=== PATIENT | male | born 1970 | race Caucasian/White ===

== ENCOUNTER 2018-11-12 08:38 | Emergency (ER) | payer OTHER ==
[~2018-11-12] VITALS: Ht 182.9 cm; Wt 88.9 kg
[2018-11-12] MEDS ORDERED: GABA300 PO (08:46)
[2018-11-12] MEDS ORDERED: CLON.1 PO (08:54)
[2018-11-12] MEDS ORDERED: B-1100 MG PO (08:54)
[2018-11-12] MEDS ORDERED: THERA1 EACH PO (08:55)
[2018-11-12] MEDS ORDERED: FOLI400 PO (08:55)
[2018-11-12] MEDS ORDERED: MELATONIN5 M1 PO (08:55)
[2018-11-12] MEDS ORDERED: Cymbalta20 MG PO (08:56)
[2018-11-12] MEDS ORDERED: Ativan1 MG PO (08:56)
[2018-11-12] MEDS ORDERED: METO25ER PO (08:57)
[2018-11-12] MEDS ORDERED: Hydroxyzine HCl50 MG PO (08:57)
[2018-11-12] MEDS ORDERED: PROM25 PO (08:58)
[2018-11-12] MEDS ORDERED: TRAZ50 PO (08:58)
== END 2018-11-12 10:15 | disposition home or self-care (01) ==
LOC: ER 08:38
DX: R44.0 Auditory hallucinations (principal); R44.1 Visual hallucinations; F10.239 Alcohol dependence with withdrawal, unspecified; Z79.899 Other long term (current) drug therapy
CPT/HCPCS: 99284

== ENCOUNTER 2018-11-12 14:29 | Inpatient (IN) | payer OTHER ==
[~2018-11-12] VITALS: Ht 182.9 cm; Wt 88.0 kg
[~2018-11-12 14:29] MED LIST: Ativan1 MG PO; B-1100 MG PO; CLON.1 PO; Cymbalta20 MG PO; FOLI400 PO; GABA300 PO; Hydroxyzine HCl50 MG PO; MELATONIN5 M1 PO; METO25ER PO; PROM25 PO; THERA1 EACH PO; TRAZ50 PO
[2018-11-12 15:01] LABS: BASOPHILS ABSOLUTE AUTO 0.01 K/mm3 (0.00-0.23); BASOPHILS PERCENT AUTO 1 % (0-2); EOSINOPHILS ABSOLUTE AUTO 0.03 K/mm3 (0.00-0.68); EOSINOPHILS PERCENT AUTO 2 % (0-6); Hematocrit 37.6 % (37.0-53.0); Hemoglobin 13.1 g/dL (13.5-17.5); IMMATURE GRAN ABSOLUTE AUTO 0.01 K/mm3 (0.00-0.10); IMMATURE GRAN PERCENT AUTO 1 % (0-1); LYMPHOCYTES ABSOLUTE AUTO 0.33 K/mm3 (0.84-5.20); LYMPHOCYTES PERCENT AUTO 19 % (21-46); MONOCYTES ABSOLUTE AUTO 0.22 K/mm3 (0.16-1.47); MONOCYTES PERCENT AUTO 13 % (4-13); Mean Corpuscular HGB 32.6 pg (26.0-34.0); Mean Corpuscular HGB Conc 34.8 g/dL (31.5-36.5); Mean Corpuscular Volume 94 fL (80-100); Mean Platelet Volume 9.9 fL (9.1-12.4); NEUTROPHILS PERCENT AUTO 65 % (41-73); RDW Coefficient Variation 12.5 % (11.7-14.2); RDW Standard Deviation 43.5 fL (35.1-46.3); Red Blood Cell Count 4.02 M/mm3 (4.30-5.90)
[2018-11-12 15:19] LABS: Platelet Count 39 K/mm3 (150-400)
[2018-11-12 15:25] LABS: Alanine Aminotransfer (ALT/SGP 185 U/L (12-78); Albumin, Blood 4.1 g/dL (3.4-5.0); Albumin/Globulin Ratio 1.6 (0.8-1.8); Alk Phos 109 U/L (50-136); Anion Gap 5 mmol/L (6-16); Aspartate Aminotrans (AST/SGOT 241 U/L (12-37); Bilirubin, Total 2.1 mg/dL (0.1-1.0); Blood Urea Nitrogen 12 mg/dL (8-24); Bun/Creatinine Ratio 15.6 (12.0-20.0); CO2, Blood 29 mmol/L (21-32); Calcium, Blood 9.8 mg/dL (8.5-10.1); Chloride, Blood 104 mmol/L (98-108); Creatinine, Blood 0.77 mg/dL (0.60-1.20); Globulin, Blood 2.6 g/dL (2.2-4.0); Glomerular Filtration Rate >60 (60-); Glucose, Blood 152 mg/dL (70-99); Magnesium, Blood 1.5 mg/dL (1.6-2.4); Potassium, Blood 3.7 mmol/L (3.5-5.5); Sodium, Blood 138 mmol/L (136-145); Total Protein, Blood 6.7 g/dL (6.4-8.2)
[2018-11-12 15:33] LABS: Ethanol (Alcohol), Blood, Med 5 mg/dL
[2018-11-12 17:20] LABS: International Normalized Ratio 1.16; Prothrombin Time Results 12.1 Sec (9.7-11.5)
[2018-11-12 17:41] LABS: Thyroid Stimulating Hormone 2.26 uIU/mL (0.360-4.800)
--- NOTE | 2018-11-12 22:32 | NUR ---
PT HAVING INCREASED HALLUCINATIONS. LIBRIUM ADDED TO EMAR BY DR. GORDON.
--- NOTE | 2018-11-13 04:37 | NUR ---
SHIFT SUMMARY PT PROGRESSIVELY BECAME MORE CONFUSED AND IMPULSIVE SHIFT WENT ON. PT IS UNSTEADY ON FEET AND A FALL RISK. PT PLACED IN EMANUEL VEST AND SOFT WRIST RESTRAINTS. PROVIDER CALLED FOR [facility] PT IS REPEATEDLY SCORING 8. LIBRIUM WAS ORDERED AND GIVEN TO PT. PT HAS BEEN HALLUCINATING T/O SHIFT. PT HAS NOT SLEPT THIS SHIFT. PT IS AGITATED AT TIMES AND DOES NOT UNDERSTAND HE IS IN HOSPITAL. PT CURRENTLY AWAKE AND WANTING TO TALK TO HIS EX AND YELLING FOR "YESY". BED ALARM ON AND CALL LIGHT IN REACH.
[2018-11-13 05:39] LABS: BASOPHILS ABSOLUTE AUTO 0.02 K/mm3 (0.00-0.23); BASOPHILS PERCENT AUTO 1 % (0-2); EOSINOPHILS ABSOLUTE AUTO 0.04 K/mm3 (0.00-0.68); EOSINOPHILS PERCENT AUTO 2 % (0-6); Hematocrit 39.8 % (37.0-53.0); Hemoglobin 13.9 g/dL (13.5-17.5); IMMATURE GRAN ABSOLUTE AUTO 0.01 K/mm3 (0.00-0.10); IMMATURE GRAN PERCENT AUTO 1 % (0-1); LYMPHOCYTES ABSOLUTE AUTO 0.45 K/mm3 (0.84-5.20); LYMPHOCYTES PERCENT AUTO 21 % (21-46); MONOCYTES ABSOLUTE AUTO 0.24 K/mm3 (0.16-1.47); MONOCYTES PERCENT AUTO 11 % (4-13); Mean Corpuscular HGB 32.9 pg (26.0-34.0); Mean Corpuscular HGB Conc 34.9 g/dL (31.5-36.5); Mean Corpuscular Volume 94 fL (80-100); Mean Platelet Volume 10.4 fL (9.1-12.4); NEUTROPHILS ABSOLUTE AUTO 1.37 K/mm3 (1.96-9.15); NEUTROPHILS PERCENT AUTO 64 % (41-73); RDW Coefficient Variation 12.6 % (11.7-14.2); RDW Standard Deviation 43.5 fL (35.1-46.3); Red Blood Cell Count 4.23 M/mm3 (4.30-5.90); White Blood Cell Count 2.13 K/mm3 (4.00-11.30)
[2018-11-13 05:42] LABS: Platelet Count 39 K/mm3 (150-400)
[2018-11-13 05:54] LABS: Alanine Aminotransfer (ALT/SGP 210 U/L (12-78); Albumin, Blood 4.2 g/dL (3.4-5.0); Albumin/Globulin Ratio 1.4 (0.8-1.8); Alk Phos 117 U/L (50-136); Anion Gap 9 mmol/L (6-16); Aspartate Aminotrans (AST/SGOT 267 U/L (12-37); Bilirubin, Total 2.3 mg/dL (0.1-1.0); Blood Urea Nitrogen 10 mg/dL (8-24); Bun/Creatinine Ratio 11.8 (12.0-20.0); CO2, Blood 26 mmol/L (21-32); Calcium, Blood 9.1 mg/dL (8.5-10.1); Chloride, Blood 106 mmol/L (98-108); Creatinine, Blood 0.85 mg/dL (0.60-1.20); Globulin, Blood 2.9 g/dL (2.2-4.0); Glomerular Filtration Rate >60 (60-); Glucose, Blood 115 mg/dL (70-99); Potassium, Blood 3.8 mmol/L (3.5-5.5); Sodium, Blood 141 mmol/L (136-145); Total Protein, Blood 7.1 g/dL (6.4-8.2)
[2018-11-13 14:49] LABS: U Amphetamine Screen Not Detected; U Barbituate Screen Not Detected; U Benzodiazapine Screen DETECTED; U Buprenorphine Screen Not Detected; U Cannabinoids Screen Not Detected; U Cocaine Screen Not Detected; U Methadone Screen Not Detected; U Methamphetamine Screen Not Detected; U Opiates Screen Not Detected; U Oxycodone Screen Not Detected; U Phencyclidine Screen Not Detected; U Propoxyphene Screen Not Detected
--- NOTE | 2018-11-13 19:14 | NUR ---
PT. LYING QUIETLY AT THIS TIME. EARLIER PT. BECAME AGITATED AND COMBATIVE WHILE STAFF TRYING REPOSITION HIM AND REPLACE HIS CONDOM CATHETER. HE WAS GIVEN 4MG IV ATIVAN AND NEW VEST AND 4-POINT RESTRAINTS REPLACED, GOT A HOLD OF BROOKE URIBE RN AND BRUISED HER THUMB. PT. HAS NOT HAD A BM TODAY. PT. HAS REMAINED CONFUSED, DISORIENTED AND HAS HAD VISUAL/AUDITORY HALLUCINATIONS T/O THE DAY. UA SENT FOR TOX SCREEN.
--- NOTE | 2018-11-13 22:22 | NUR ---
PT NOT RESPONDING WELL TO THE LIBRIUM. PT BECOMES MORE AGITATED AND HALLUCINATIONS INCREASE. PT HAS HARD WRISTS RESTRAINTS AND HAD PULLED OFF CONDOM CATH. PT RESPONDS WELL TO ATIVAN. PT HAS BEEN HAVING INCREASED CIWA SCORES. PT MEDICATED WITH ATIVAN PER EMAR WITH REDUCTION IN CIWA SCORE. WILL CONTINUE TO ASSESS AND MONITOR.
--- NOTE | 2018-11-14 04:29 | NUR ---
SHIFT SUMMARY PT CIWA'S WERE INCREASING DURING MOST OF SHIFT. PT RESPONDS WELL TO ATIVAN. LIBRIUM DID NOT HAVE MUCH OF THE EXPECTED EFFECT. PT AGITATION INCREASED WITH LIBRIUM. WITH THE CONTINUED USE OF ATIVAN PT DID BECOME CALM AND WAS ABLE TO SLEEP. PT REMAINS CONFUSED AND HAS HALLUCINATIONS INTERMITENTLY. PT CURRENTLY SLEEPING AND BREATHING EASY. CALL LIGHT IN REACH.
[2018-11-14 05:09] LABS: BASOPHILS ABSOLUTE AUTO 0.04 K/mm3 (0.00-0.23); BASOPHILS PERCENT AUTO 2 % (0-2); EOSINOPHILS ABSOLUTE AUTO 0.07 K/mm3 (0.00-0.68); EOSINOPHILS PERCENT AUTO 3 % (0-6); Hematocrit 42.6 % (37.0-53.0); Hemoglobin 14.6 g/dL (13.5-17.5); IMMATURE GRAN ABSOLUTE AUTO 0.01 K/mm3 (0.00-0.10); IMMATURE GRAN PERCENT AUTO 0 % (0-1); LYMPHOCYTES ABSOLUTE AUTO 0.48 K/mm3 (0.84-5.20); LYMPHOCYTES PERCENT AUTO 18 % (21-46); MONOCYTES ABSOLUTE AUTO 0.39 K/mm3 (0.16-1.47); MONOCYTES PERCENT AUTO 14 % (4-13); Mean Corpuscular HGB 32.6 pg (26.0-34.0); Mean Corpuscular HGB Conc 34.3 g/dL (31.5-36.5); Mean Corpuscular Volume 95 fL (80-100); Mean Platelet Volume 9.4 fL (9.1-12.4); NEUTROPHILS ABSOLUTE AUTO 1.72 K/mm3 (1.96-9.15); NEUTROPHILS PERCENT AUTO 63 % (41-73); Platelet Count 55 K/mm3 (150-400); RDW Coefficient Variation 12.6 % (11.7-14.2); RDW Standard Deviation 44.4 fL (35.1-46.3); Red Blood Cell Count 4.48 M/mm3 (4.30-5.90); White Blood Cell Count 2.71 K/mm3 (4.00-11.30)
[2018-11-14 05:32] LABS: Alanine Aminotransfer (ALT/SGP 224 U/L (12-78); Albumin, Blood 4.1 g/dL (3.4-5.0); Albumin/Globulin Ratio 1.3 (0.8-1.8); Alk Phos 122 U/L (50-136); Anion Gap 10 mmol/L (6-16); Aspartate Aminotrans (AST/SGOT 245 U/L (12-37); Bilirubin, Total 2.6 mg/dL (0.1-1.0); Blood Urea Nitrogen 11 mg/dL (8-24); Bun/Creatinine Ratio 13.5 (12.0-20.0); CO2, Blood 25 mmol/L (21-32); Chloride, Blood 106 mmol/L (98-108); Creatinine, Blood 0.82 mg/dL (0.60-1.20); Globulin, Blood 3.1 g/dL (2.2-4.0); Glomerular Filtration Rate >60 (60-); Glucose, Blood 95 mg/dL (70-99); Phosphorus, Blood 4.6 mg/dL (2.5-4.9); Potassium, Blood 3.4 mmol/L (3.5-5.5); Sodium, Blood 141 mmol/L (136-145); Total Protein, Blood 7.2 g/dL (6.4-8.2)
--- NOTE | 2018-11-14 09:30 | NUR ---
PT. AWAKES TO VERBAL CUES. REFUSES BREAKFAST BUT DRANK ORANGE JUICE. PT. REPORTING WRIST RESTRAINTS WERE TO TIGHT. PT. MUCH MORE ALERT AND ORIENTED TODAY. REMOVED TAT WRIST RESTRAINTS AND PLACED SOFT WRISTS RESTRAINTS LIGHTLY IF PT COOPERATIVE AND DOES NOT TRY TO PULL OUT LINES LATER TODAY WE MAY DISCONTINUE THE WRIST AND ANLE RESTRAINTS.
--- NOTE | 2018-11-14 12:26 | NUR ---
PT.'S WRIST AND ANKLE RESTRAINTS REMOVED BUT EMANUEL VEST REMAINS IN PLACE.
--- NOTE | 2018-11-14 18:59 | NUR ---
PT. SLEEPING AFTER AFTER EATING SOME OF HIS DINNER. STILL PLEASANT AND COOPERATIVE. HAS DONE WELL WITHOUT 4 POINT RESTRAINTS. NO NOTEABLE CHANGES THIS SHIFT. CONDOM CATH STILL IN PLACE
--- NOTE | 2018-11-15 04:52 | NUR ---
SHIFT SUMMARY PT HAS IMPROVED SIGNIFICANTLY SINCE NIGHT BEFORE. PT IS NO LONGER IN RESTRAINTS AND HE UNDERSTANDS HIS SITUATION. PT HAD NO ISSUES OR COMPLAINTS. PT HAS SLEPT T/O SHIFT. PT IS CONFUSED BUT DIRECTABLE. PT STILL WEAK AND UNSTEADY ON FEET. PT CURRENTLY SLEEPING AND BREATHING EASY. CALL LIGHT IN REACH AND BED ALARM ON.
[2018-11-15 12:33] LABS: Antinuclear Antibody Screen Negative (Negative)
[2018-11-15 16:06] LABS: ALBUMIN 4.5 g/dL (2.9-4.4); ALPHA-1-GLOBULIN 0.3 g/dL (0.0-0.4); ALPHA-2-GLOBULIN 0.5 g/dL (0.4-1.0); GAMMA GLOBULIN 0.5 g/dL (0.4-1.8); GLOBULIN, TOTAL 2.3 g/dL (2.2-3.9); M-SPIKE Not Observed g/dL (Not Observed); PROTEIN, TOTAL, SERUM 6.8 g/dL (6.0-8.5)
--- NOTE | 2018-11-15 16:51 | NUR ---
SUMMARY- PT SLEPT IN TODAY, MORE ALERT AROUND LUNCH. PLEASANT AND COOPERATIVE. AMBULATED TO BATHROOM SBA GOOD STRENGTH AND STEADY ON FEET, OCC MIS-STEP. ATE MOST OF HIS LUNCH AND TOLERATING PO FLUIDS. HAD 1L OF BANANA BAG. CIWA REMAINS 0, DENIES HALLUCINATIONS NO TREMORS. FORGETFUL TO USE CALL LIGHT EARLIER IN THE DAY AND BY THE END OF THE DAY, USES CALL LIGHT APPROPRIATE AND WAITS NOW FOR HELP. [facility]AFF [facility] CALLED TODAY AND THEY ARE HOLDING A RESIDENTIAL BED FOR THE RESIDENT. PT AGREES HE WANTS TO CONT WITH RESIDENTIAL TX. HE IS WANTING TO STAY SOBER AND CLEAR OF ETOH.
[2018-11-16 04:52] LABS: BASOPHILS ABSOLUTE AUTO 0.05 K/mm3 (0.00-0.23); BASOPHILS PERCENT AUTO 1 % (0-2); EOSINOPHILS ABSOLUTE AUTO 0.07 K/mm3 (0.00-0.68); EOSINOPHILS PERCENT AUTO 2 % (0-6); Hematocrit 44.9 % (37.0-53.0); Hemoglobin 15.3 g/dL (13.5-17.5); IMMATURE GRAN ABSOLUTE AUTO 0.01 K/mm3 (0.00-0.10); IMMATURE GRAN PERCENT AUTO 0 % (0-1); LYMPHOCYTES ABSOLUTE AUTO 0.85 K/mm3 (0.84-5.20); LYMPHOCYTES PERCENT AUTO 22 % (21-46); MONOCYTES ABSOLUTE AUTO 0.66 K/mm3 (0.16-1.47); MONOCYTES PERCENT AUTO 17 % (4-13); Mean Corpuscular HGB 32.6 pg (26.0-34.0); Mean Corpuscular HGB Conc 34.1 g/dL (31.5-36.5); Mean Corpuscular Volume 96 fL (80-100); Mean Platelet Volume 9.6 fL (9.1-12.4); NEUTROPHILS ABSOLUTE AUTO 2.16 K/mm3 (1.96-9.15); NEUTROPHILS PERCENT AUTO 57 % (41-73); Platelet Count 69 K/mm3 (150-400); RDW Coefficient Variation 12.9 % (11.7-14.2); RDW Standard Deviation 45.3 fL (35.1-46.3)
[2018-11-16 05:30] LABS: Albumin, Blood 3.9 g/dL (3.4-5.0); Anion Gap 8 mmol/L (6-16); Blood Urea Nitrogen 16 mg/dL (8-24); Bun/Creatinine Ratio 15.4 (12.0-20.0); CO2, Blood 25 mmol/L (21-32); Calcium, Blood 8.9 mg/dL (8.5-10.1); Chloride, Blood 108 mmol/L (98-108); Creatinine, Blood 1.04 mg/dL (0.60-1.20); Glomerular Filtration Rate >60 (60-); Glucose, Blood 93 mg/dL (70-99); Sodium, Blood 141 mmol/L (136-145)
--- NOTE | 2018-11-16 05:59 | NUR ---
SHIFT SUMMARY NO ACUTE EVENTS OVERNIGHT. PATIENT USED CALL LIGHT APPROPRIATELY. CIWA BETWEEN 4-6. NO ACUTE EVENTS OVERNIGHT. LEFT WRIST IV PATENT WITH NO S/S OF INFECTION.
[2018-11-16] MEDS ORDERED: FAMO20 PO (14:56)
--- NOTE | 2018-11-16 16:11 | NUR ---
pt discharged PT VERBALIZED UNDERSTANDING OF THE DC INSTRUCTIONS, [facility] WAS CONTACTED REGARDING THE PTS DISCHARGE AND IS EXPECTING HIM, A TAXI WAS ARRANGED AND THE PT WAS TRANSFERD VIA WHEELCHAIR TO THE TAXI, A/OX3 APPEARED TO BE BREATHING EASILY ON RA, PRESCRIPTIONS WERE FAXED TO [facility] REQUESTED BY [facility]
[2018-11-17 05:09] LABS: HIV SCREEN 4TH GENERATION WRFX Non Reactive (Non Reactive)
[2018-11-18 05:09] LABS: HBSAG SCREEN Negative (Negative); HEP A AB, IGM Negative (Negative); HEP B CORE AB, IGM Negative (Negative); HEP C VIRUS AB <0.1 (0.0-0.9)
== END 2018-11-16 15:52 | DRG 897 ==
LOC: ER 14:29 → MEDS 16:48 → ENPENDDIS 11-16 14:46 → MEDS 11-16 15:52
PROVIDERS: Emergency Medicine; Internal Medicine; ADMIT Internal Medicine
DX: F10.951 Alcohol use, unspecified with alcohol-induced psychotic disorder with hallucinations (principal); D61.818 Other pancytopenia; K70.30 Alcoholic cirrhosis of liver without ascites; R74.0 Nonspecific elevation of levels of transaminase and lactic acid dehydrogenase [LDH]; E87.6 Hypokalemia; E83.42 Hypomagnesemia; L40.9 Psoriasis, unspecified; Z78.1 Physical restraint status
CPT/HCPCS: 36415; 70450; 76705; 80053; 80069; 80074; 82607; 83735; 84100; 84165; 84443; 85025; 85610; 86038; 87389; 94762; 96374; 99285-25; G0480; J2060; J3411; J3475; J7042

== ENCOUNTER 2025-04-28 01:53 | Emergency (ER) | payer OTHER ==
[~2025-04-28] VITALS: Ht 182.9 cm; Wt 86.2 kg
[~2025-04-28 01:53] MED LIST changes: +CORGARD40 MG PO; +FAMO20 PO; +HYDR1TAB94 PO; +Hydroxyzine HCl25 MG PO; +K-Dur 20 meq T20 MEQ PO; +MISCTAB PO; +ONDA4ODT MM; +PANT40 PO; +SILD25T PO; +SUCR1 PO; +TADA10TA PO; +TAMS.4ER PO
[2025-04-28 02:41] LABS: BASOPHILS ABSOLUTE AUTO 0.03 K/mm3 (0.00-0.23); BASOPHILS PERCENT AUTO 0 % (0-2); EOSINOPHILS ABSOLUTE AUTO 0.02 K/mm3 (0.00-0.68); EOSINOPHILS PERCENT AUTO 0 % (0-6); Hematocrit 41.5 % (37.0-53.0); Hemoglobin 14.8 g/dL (13.5-17.5); IMMATURE GRAN ABSOLUTE AUTO 0.04 K/mm3 (0.00-0.10); IMMATURE GRAN PERCENT AUTO 1 % (0-1); LYMPHOCYTES ABSOLUTE AUTO 0.34 K/mm3 (0.84-5.20); LYMPHOCYTES PERCENT AUTO 5 % (21-46); MONOCYTES ABSOLUTE AUTO 0.52 K/mm3 (0.16-1.47); MONOCYTES PERCENT AUTO 8 % (4-13); Mean Corpuscular HGB Conc 35.7 g/dL (31.5-36.5); Mean Corpuscular Volume 84 fL (80-100); NEUTROPHILS ABSOLUTE AUTO 5.96 K/mm3 (1.96-9.15); NEUTROPHILS PERCENT AUTO 86 % (41-73); NRBC ABSOLUTE 0.00 K/mm3 (0.00-0.02); NRBC Auto 0.0 /100 WBC (0.0-0.2); Platelet Count 110 K/mm3 (150-400); RDW Coefficient Variation 12.3 % (11.7-14.2); RDW Standard Deviation 37.2 fL (35.1-46.3)
[2025-04-28 03:09] LABS: Alanine Aminotransfer (ALT/SGP 196.0 U/L (12-78); Albumin, Blood 3.4 g/dL (3.4-5.0); Albumin/Globulin Ratio 0.9 (0.8-1.8); Anion Gap 10.0 mmol/L (3-11); Aspartate Aminotrans (AST/SGOT 55.0 U/L (12-37); Bilirubin, Total 5.9 mg/dL (0.1-1.0); Blood Urea Nitrogen 17.0 mg/dL (8-24); CO2, Blood 27.0 mmol/L (21-32); Calcium, Blood 9.2 mg/dL (8.5-10.1); Chloride, Blood 104.0 mmol/L (98-108); Creatinine, Blood 1.13 mg/dL (0.60-1.20); Globulin, Blood 3.6 g/dL (2.2-4.0); Glucose, Blood 141.0 mg/dL (70-99); Potassium, Blood 3.5 mmol/L (3.5-5.5); Sodium, Blood 137.0 mmol/L (136-145); Total Protein, Blood 7.0 g/dL (6.4-8.2)
[2025-04-28] MEDS ORDERED: Ondansetron HCl 2 MG / ML 2ML Vial IV ONE (06:45)
[2025-04-28] MEDS ORDERED: HYDROmorphone HCl/Pf 1MG SYR IV ONE ×3 (06:45→14:25)
[2025-04-28] MEDS ORDERED: NS 1,000 ML IV SCH ×2 (06:45→16:15)
[2025-04-28] MEDS ORDERED: Piperacillin/Tazobactam Sod 4.5 GM in NS 100 ML IV ONE (16:05)
[2025-04-28] MEDS ORDERED: HYDROmorphone HCl/Pf 1MG SYR IV PRN (18:50)
[2025-04-28] MEDS ORDERED: Diazepam 5 MG / ML 2ML SYR IV ONE (22:05)
[2025-04-28] MEDS ORDERED: Morphine Sulfate 10 MG/ML 1MLSYR IV ONE (23:10)
[2025-04-29 07:34] VITALS: BP 125/74
== END 2025-04-29 08:30 | disposition short-term general hospital (02) ==
LOC: ER 01:53
PROVIDERS: Emergency Medicine
DX: K80.50 Calculus of bile duct without cholangitis or cholecystitis without obstruction (principal)
CPT/HCPCS: 71260; 74177; 80053; 82248; 83690; 85025; 96365-59; 96375; 96375-59; 96376; 96376-59; 99285-25; J1171; J1790; J2270; J2405; J2543; J3360; J7030; Q9967